=== PATIENT | female | born 1980 | race African-American/Black ===

== ENCOUNTER 2020-03-04 00:53 | Emergency (ER) | payer MEDICAID ==
[~2020-03-04] VITALS: Ht 160 cm; Wt 149.7 kg
[2020-03-04] MEDS ORDERED: ALBUTEROL SULF8.5 G1 INH (01:01)
--- NOTE | 2020-03-04 01:10 | NUR ---
ED Nurse Note: Recieved pt walk in from home, here with c/o asthma exacerbation, pt is awake, alert and oriented x 4, denies chest pain or any pain, mild sob noted on exertion, pt able to complete sentences when speaking, denies fevers, diarrhea, nausea or any other s/s. pt assisted to bed and monitoring.
[2020-03-04] MEDS ORDERED: PREDNISONE20 MG ORAL (01:15)
[2020-03-04] MEDS ORDERED: Albuterol ud Inhalation HHN ONE (01:15)
[2020-03-04] MEDS ORDERED: Ipratropium 0.02% Inh Soln 2.5ml UD HHN ONE (01:15)
--- NOTE | 2020-03-04 01:15 | Emergency Room Report ---
History of Present Illness General Chief Complaint: Asthma Source: Patient Present Illness HPI Is a 39-year-old female with history of asthma. She presents with chief complaint of asthma exacerbation. Onset for 1 to 2 days. She said the cold weather is triggering her asthma. Her inhalers not helping. Worse with lying flat. Worse with inspiration. She felt like she is wheezing. No recent steroid use. No admission or intubation for her asthma. Denies any fever chills but denies any congestion or runny nose. Does have cough but nonproductive nature. She said this is due to her asthma. Does not want Covid testing. Allergies: Coded Allergies: No Known Allergies (Unverified , 03/04/20) COVID-19 Screening Contact w/high risk pt: No Experienced COVID-19 symptoms?: No COVID-19 Testing performed [facility]: No Patient History Past Medical History: see triage record, old chart reviewed, asthma Past Surgical History: none Pertinent Family History: none Social History: Denies: smoking Last Menstrual Period: january 2020 Now: No Immunizations: other Reviewed Nursing Documentation: PMH: Agreed; PSxH: Agreed Nursing Documentation-PMH Past Medical History: No History, Except For Hx Asthma: Yes Review of Systems Eye: Denies: eye pain, blurred vision ENT: Denies: ear pain, nose congestion, throat swelling Respiratory: Reports: cough, shortness of breath, wheezing Cardiovascular: Denies: chest pain, palpitations Gastrointestinal: Denies: abdominal pain, diarrhea, nausea, vomiting Musculoskeletal: Denies: back pain, joint pain Skin: Denies: rash Neurological: Denies: headache, numbness Endocrine: Denies: increased thirst, increased urine Hematologic/Lymphatic: Denies: easy bruising All Other Systems: negative except mentioned in HPI Physical Exam Vital Signs Date Time Temp Pulse Resp B/P (MAP) Pulse Ox O2 Delivery O2 Flow Rate FiO2 03/04/20 00:58 97.9 95 15 129/78 (95) 95 Room Air Vitals normal Sp02 EP Interpretation: reviewed, normal General Appearance: well appearing, no apparent distress, alert, obese Head: normocephalic, atraumatic Eyes: bilateral eye PERRL, bilateral eye EOMI ENT: hearing grossly normal, normal pharynx Neck: full range of motion, supple, no meningismus Respiratory: chest non-tender, wheezing Cardiovascular #1: regular rate, rhythm, no murmur Gastrointestinal: normal bowel sounds, non tender, no mass, no organomegaly, no bruit, non-distended Musculoskeletal: back normal, normal range of motion, gait/station normal Psychiatric: mood/affect normal Medical Decision Making Diagnostic Impression: Primary Impression: Asthma exacerbation Qualified Codes: J45.21 - Mild intermittent asthma with (acute) exacerbation ER Course She presents with asthma exacerbation. No evidence of any respiratory distress, pneumonia, PE, dissection to name a few. Patient does not want Covid testing. Last Vital Signs Date Time Temp Pulse Resp B/P (MAP) Pulse Ox O2 Delivery O2 Flow Rate FiO2 03/04/20 00:58 97.9 95 15 129/78 (95) 95 Room Air Status: improved Disposition: HOME, SELF-CARE Condition: Stable Scripts Prednisone* (PREDNISONE*) 20 Mg Tablet 40 MG ORAL DAILY, #8 TAB Prov: Dhiraj Omalley MD 03/04/20 Patient Instructions: Asthma, Adult Additional Instructions: Continue with your inhaler. Follow-up with your doctor in 7 days. Return if symptoms worsen. Dhiraj Omalley MD Mar 04, 2020 01:15
[2020-03-04 01:50] VITALS: BP 131/77
[2020-03-04 01:55] VITALS: BP 129/78
--- NOTE | 2020-03-04 01:55 | NUR ---
ER DISCHARGE NOTE: Patient is cleared to be discharged per ERMD, pt is aox4, on room air, with stable vital signs. pt was given dc and prescription instructions, pt was able to verbalize understanding, pt id band removed without complications. pt is able to ambulate with steady gait. pt took all belongings.
== END 2020-03-04 01:55 | disposition home or self-care (01) ==
LOC: EMR 01:15
DX: J45.21 Mild intermittent asthma with (acute) exacerbation (principal); E66.9 Obesity, unspecified; Z68.43 Body mass index [BMI] 50.0-59.9, adult
CPT/HCPCS: 94640; J7512; Z7502; 99283